=== PATIENT | female | born 1950 | race Caucasian/White ===

== ENCOUNTER → 2022-02-12 | Outpatient (CLI) | payer MEDICARE ==
--- NOTE | 2022-02-12 19:24 | CT ---
EXAMINATION TYPE: CT brain wo con DATE OF EXAM: 02/12/2022 COMPARISON: None HISTORY: SYNCOPE AND COLLAPSE CT DLP: 1018.7 mGycm Automated exposure control for dose reduction was used. Images of the brain obtained with no contrast. There is some cerebral cortical atrophy. No mass effect or midline shift. No sign of intracranial hem orrhage. The calvarium is intact. There is normal aeration of the mastoid sinuses. There is some mild hypodensity in the periventricular white matter. IMPRESSION: Mild atrophy. No acute intracranial abnormality. There is likely some chronic small vessel ischemia.
== END | disposition home or self-care (01) ==
LOC: RADCTMAIN 18:48
PROVIDERS: ATTEND Family Medicine
DX: G31.9 Degenerative disease of nervous system, unspecified (principal); I67.82 Cerebral ischemia
CPT/HCPCS: 70450

== ENCOUNTER → 2022-03-13 | Outpatient (CLI) | payer MEDICARE ==
--- NOTE | 2022-03-14 09:38 | CA ---
Transthoracic Echo Report Name: Tracy Tenorio Age: 72 Gender: F : 1950 Exam Date: 03/13/2022 14:49 Exam Location: [place] Echo Ht (in): 65 Wt (lb): 175 Ordering Physician: Oscar Estrada MD Attending/Referring Phys: Oscar Estrada MD Sewing Supervisor Rema Fulton [facility] Procedure CPT: Indications: R55 Syncope Cardiac Hx: Technical Quality: Good Contrast 1: Total Dose (mL): Contrast 2: Total Dose (mL): MEASUREMENTS (Male / Female) Normal Values 2D ECHO LV Diastolic Diameter PLAX 4.0 cm 4.2 - 5.9 / 3.9 - 5.3 cm LV Systolic Diameter PLAX 2.7 cm IVS Diastolic Thickness 1.1 cm 0.6 - 1.0 / 0.6 - 0.9 cm LVPW Diastolic Thickness 1.0 cm 0.6 - 1.0 / 0.6 - 0.9 cm LV Relative Wall Thickness 0.5 RV Internal Dim ED PLAX 2.7 cm LA Systolic Diameter LX 3.0 cm 3.0 - 4.0 / 2.7 - 3.8 cm LA Volume 28.7 cm??? 18 - 58 / 22 - 52 cm??? M-MODE Aortic Root Diameter MM 2.9 cm MV E Point Septal Separation 0.4 cm AV Cusp Separation MM 2.1 cm DOPPLER AV Peak Velocity 131.8 cm/s AV Peak Gradient 7.0 mmHg MV Area PHT 3.2 cm??? Mitral E Point Velocity 61.0 cm/s Mitral A Point Velocity 73.4 cm/s Mitral E to A Ratio 0.8 MV Deceleration Time 233.6 ms MV E' Velocity 6.9 cm/s Mitral E to MV E' Ratio 8.8 FINDINGS Left Ventricle Left ventricular ejection fraction is estimated at 60-65 %. Left ventricular cavity size normal. Mildly increased septal wall thickness. Mildly increased posterior wall thickness. Right Ventricle Normal right ventricular size and function. Unable to estimate the right ventricular systolic pressure. Right Atrium Normal right atrial size. Left Atrium Normal left atrial size. No evidence for an atrial septal defect. Mitral Valve Structurally normal mitral valve. No mitral stenosis, regurgitation or prolapse. Aortic Valve Trileaflet aortic valve. No aortic valve stenosis or regurgitation. Tricuspid Valve Structurally normal tricuspid valve. No tricuspid stenosis, regurgitation or prolapse. Pulmonic Valve Trace pulmonic regurgitation. Pericardium Normal pericardium. No pericardial effusion. Aorta Normal size aortic root and proximal ascending aorta. CONCLUSIONS Left ventricular ejection fraction 60-65% Mildly increased left ventricular wall thickness No mitral regurgitation Normal RVSP No pericardial effusion Previewed by: Dr. Tucker Lyn DO (Electronically Signed) Final Date: 14 March 2022 09:37
== END | disposition home or self-care (01) ==
LOC: RADECHMAIN 14:47
PROVIDERS: ATTEND Family Medicine
DX: R55 Syncope and collapse (principal)
CPT/HCPCS: 93306

== ENCOUNTER → 2022-04-13 | Outpatient (CLI) | payer MEDICARE ==
[~2022-04-13] MED LIST: REGADENOSON 0.4 MG/5 ML SYRINGE IV PRN
--- NOTE | 2022-04-13 11:08 | CA ---
Lexiscan Nuclear Stress Test Report Name: Tracy Tenorio Exam Date: 04/13/2022 10:12 Exam Location: [place] Stress Ht (in): 65 Wt (lb): 172 BSA: 1.86 Ordering Phys: Oscar Estrada MD Referring Phys: Sean, Technologist: Hardik Betts Age: 72 Gender: F : 1950 Procedure CPT: Indications: I20.9 ICD-10 Codes: Patient History: Medications: NONE Meds past 24 hrs: Pretest Chest Pain: STRESS TEST Lexiscan Protocol Exercise Duration (min:sec): 02:[address] Depressions (mm): Angina Score: Crocker Score: Resting HR (bpm): 62 Peak HR (bpm): 89 Resting BP (mmHg): 164 / 84 Peak BP (mmHg): 156 / 84 MPHR: 149 Target HR: 127 % MPHR: 60 METS: 1.0 Total Dose: Peak Dose: Atropine: Double Product: 62224 BP Response: Stress Termination: PROTOCOL COMPLETED Stress Symptoms: NO SYMPTOMS Stress Summary: ECG ANALYSIS Resting ECG: Stress ECG: CONCLUSIONS Non-diagnostic electrocardiogram stress testing Dr. Tai Rowe MD (Electronically Signed) Final Date: 13 April 2022 11:08
--- NOTE | 2022-04-13 11:45 | NM ---
EXAMINATION TYPE: NM stress lexiscan cardiolite DATE OF EXAM: 04/13/2022 COMPARISON: NONE HISTORY: Angina. Palpitations. Family history of heart attack in dad. TECHNIQUE: After the intravenous administration of 10.7 mCi Tc 99m Sestamibi - Cardiolite resting SP ECT images acquired 60 minutes post injection. The patient received 0.4mg Lexiscan, 25 mCi Tc 99m Sestamibi - Stress images obtained 45 minutes post injection FINDINGS: Review of stress and rest SPECT images demonstrates no distinct perfusion abnormality. Gated analysi s shows normal wall motion with an estimated left ventricular ejection fraction of greater than 80 % . IMPRESSION: No scintigraphic evidence for reversible ischemia.
== END | disposition home or self-care (01) ==
LOC: RADNMMAIN 07:53
PROVIDERS: ATTEND Family Medicine
DX: I20.9 Angina pectoris, unspecified (principal); Z82.49 Family history of ischemic heart disease and other diseases of the circulatory system
CPT/HCPCS: 93017; 78452; A9500; J2785